=== PATIENT | female | born 1990 | race Caucasian/White ===

== ENCOUNTER 2018-05-23 16:37 | Emergency (ER) | payer SELFPAY ==
[~2018-05-23] VITALS: Ht 175.3 cm; Wt 72.1 kg
[~2018-05-23 16:37] MED LIST: ADV250/50; ALBUTEROL SULF0.5 M1 IH; MECLIZINE25 M1 PO; SKE400; SOM350 PO
[2018-05-23 16:43] VITALS: Ht 175.3 cm; Wt 72.1 kg
[2018-05-23 17:43] VITALS: BP 130/64
== END 2018-05-23 17:43 | disposition home or self-care (01) ==
LOC: ED 16:37
DX: S61.206A Unspecified open wound of right little finger without damage to nail, initial encounter (principal); J45.909 Unspecified asthma, uncomplicated; R03.0 Elevated blood-pressure reading, without diagnosis of hypertension; Z88.5 Allergy status to narcotic agent; W26.0XXA Contact with knife, initial encounter; Y93.89 Activity, other specified; Y92.89 Other specified places as the place of occurrence of the external cause; Y99.8 Other external cause status